=== PATIENT | female | born 1980 | race Caucasian/White ===

== ENCOUNTER → 2017-01-06 | Outpatient (CLI) | payer OTHER | LOC: FIMAGING 07:36 | PROVIDERS: ATTEND Radiology Diagnostic Radiology | DX: I87.2 Venous insufficiency (chronic) (peripheral) (principal) ==

== ENCOUNTER 2017-02-19 07:33 | Day surgery (SDC) | payer OTHER ==
[2017-02-19] MEDS ORDERED: FLUMAZENIL 0.5 MG/5 ML MDV IVP ONE (08:47)
[2017-02-19] MEDS ORDERED: MIDAZOLAM 2 MG/2 ML VIAL ONE ×2 (08:48→10:03)
[2017-02-19] MEDS ORDERED: NALOXONE HCL 0.4 MG/ML INJ ONE (08:48)
[2017-02-19] MEDS ORDERED: fentaNYL 100 MCG/2 ML INJ ONE ×2 (08:48→10:02)
[2017-02-19] MEDS ORDERED: ONDANSETRON 4 MG/2 ML VIAL ONE ×2 (08:48→09:03)
[2017-02-19] MEDS ORDERED: LIDO/EPI 1% **for epidural** 30 ML SDV ONE (09:10)
[2017-02-19] MEDS ORDERED: NITROGLYCERIN 2% 1 GM PACKET ONE ×2 (09:12→09:37)
[2017-02-19] MEDS ORDERED: CITRIC ACID/SODIUM CITRATE 30 ML UDCUP ONE (09:16)
[2017-02-19] MEDS ORDERED: SODIUM TETRADECYL SULFATE 60 MG/2 ML VIAL IV ONE (09:30)
[2017-02-19] MEDS ORDERED: NS 1,000 ML IV SCH (10:00)
[2017-02-19] MEDS ORDERED: IOPAMIDOL (ISOVUE-300) 100 ML BTL IV ONE (10:49)
[2017-02-19] MEDS ORDERED: IBUPROFEN 200 MG TAB PO ONE (11:26)
== END 2017-02-19 12:35 | disposition home or self-care (01) ==
LOC: FIMAGING 07:33
PROVIDERS: ATTEND Radiology Diagnostic Radiology
PROC: 06DQ3ZZ Extraction of Left Saphenous Vein, Percutaneous Approach (ICD-10-PCS; principal; 2017-02-19 11:15)
PROC: 065Q3ZZ Destruction of Left Saphenous Vein, Percutaneous Approach (ICD-10-PCS; principal; 2017-02-19 11:15)
DX: I83.892 Varicose veins of left lower extremity with other complications (principal)
CPT/HCPCS: 36478; 37799; 99152; C1769; J2250; J2310; J2405; J3010; Q9967

== ENCOUNTER → 2019-01-03 | Outpatient (CLI) | payer OTHER | LOC: FIMAGING 12:22 | PROVIDERS: ATTEND Obstetrics & Gynecology | DX: N83.9 Noninflammatory disorder of ovary, fallopian tube and broad ligament, unspecified (principal); N83.202 Unspecified ovarian cyst, left side; Z90.710 Acquired absence of both cervix and uterus ==